=== PATIENT | female | born 1980 | race Caucasian/White ===

== ENCOUNTER 2016-09-21 17:22 | Emergency (ER) | payer MEDICARE, MEDICAID ==
[~2016-09-21] VITALS: Ht 167.6 cm; Wt 101.3 kg
[2016-09-21] MEDS ORDERED: SODIUM CHLORIDE FLUSH 3 ML SYR IV PRN (17:55)
[2016-09-21] MEDS ORDERED: SODIUM CHLORIDE FLUSH 10 ML SYR IV PRN (17:55)
[2016-09-21] MEDS ORDERED: ASPIRIN 81 MG CHEW (CHILDREN'S ASA) PO ONE (17:55)
[2016-09-21] MEDS ORDERED: KETOROLAC 30 MG/ML (TORADOL) 1 ML VIAL IV ONE (17:55)
[2016-09-21] MEDS: NITROGLYCERIN SUBLINGUAL 0.4 MG (NITROQUICK) TABLET SL PRN ×3 (18:15→18:55)
[2016-09-21 18:35] LABS: BASOPHILS % (AUTO) 0 % (0-2); EOSINOPHILS # (AUTO) 0.1 10^3uL; EOSINOPHILS % (AUTO) 1 % (0-4); LYMPHOCYTES # (AUTO) 2.6 X10^3; MEAN CORPUSCULAR HEMOGLOBIN 31.3 PG (26.0-34.0); MEAN CORPUSCULAR HGB CONC 36.1 g/dL (31.0-37.0); MEAN CORPUSCULAR VOLUME 87 FL (80-100); MEAN PLATELET VOLUME 8.2 FL (6.0-9.5); MONOCYTES # (AUTO) 0.5 X10^3; MONOCYTES % (AUTO) 7 % (3-11); NEUTROPHILS # (AUTO) 3.9 X10^3; NEUTROPHILS % (AUTO) 55 % (51-67); PLATELET COUNT 325 10^3uL (150-450); WHITE BLOOD COUNT 7.12 10^3uL (4.0-11.0)
[2016-09-21 18:45] LABS: ALBUMIN 4.7 g/dL (3.4-5.0); ALKALINE PHOSPHATASE 62 U/L (38-126); ANION GAP 17.9 MEQ/L (3-15); BUN/CREATININE RATIO 33 (10-20); CALCULATED IONIZED CALCIUM 3.8 mg/dL (3.8-4.6); TOTAL PROTEIN 8.2 g/dL (6.4-8.5)
--- NOTE | 2016-09-21 20:01 | NUR ---
RN RECEIVED REPORT FROM Matt TRISTAN RN AND ACCEPTED CARE OF PT. INTRODUCED SELF TO PT. SHE IS DOING WELL DENIES ANY CHEST OR STOMACH PAIN AT THIS TIME
[2016-09-21 21:05] VITALS: BP 132/83
== END 2016-09-21 21:07 | disposition home or self-care (01) ==
LOC: ED 17:23
DX: R07.89 Other chest pain (principal)
CPT/HCPCS: 36415; 71010; 80053; 84484; 85025; 93005; 96374; 99284; A9270; J1885; 93010; 99285